=== PATIENT | male | born 1935 | race Asian ===

== ENCOUNTER 2016-10-23 10:53 | Emergency (ER) | payer OTHER ==
[2016-10-23 11:01] VITALS: BP 158/59
--- NOTE | 2016-10-23 12:18 | UC ---
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 noticed he could not find the end of his hearing aid and thinks it may be stuck in ear Severity Initially: Mild Severity Currently: Mild Aggravating Factors: Nothing Alleviating Factors: Nothing Associated Signs/Symptoms: Negative: Discharge, URI Symptoms - Allergies/Home Medications Allergies/Adverse Reactions: Allergies Allergy/AdvReac Type Severity Reaction Status Date / Time No Known Allergies Allergy Verified 10/23/16 11:01 PMH/Surg Hx/FS Hx/Imm Hx Previously Healthy: Yes - Surgical History Surgical History: None - Family History Known Family History: Positive: None - Social History Occupation: Retired Lives: With Family Alcohol Use: None Substance Use Type: None Smoking Status (MU): Never Smoked Tobacco Review of Systems Constitutional: Negative ENT: Ear Ache Respiratory: Negative Cardiovascular: Negative Neurological: Negative Psychological: Negative All Other Systems Reviewed And Are Negative: Yes Physical Exam Triage Information Reviewed: Yes Appearance: Well-Appearing, No Pain Distress, Well-Nourished Vital Signs: Initial Vital Signs Temp 98.8 F 10/23/16 10:56 Pulse 54 10/23/16 10:56 Resp 16 10/23/16 10:56 BP 158/59 10/23/16 10:56 Pulse Ox 99 10/23/16 10:56 Vital Signs Reviewed: Yes ENT: Positive: TM dull - no FB in canal, Left TM, somewhat retracted and injected Dental Exam: Normal Neck exam: Normal Neck: Positive: Supple, Nontender, No Lymphadenopathy Respiratory Exam: Normal Cardiovascular Exam: Normal Neurological Exam: Normal Psychological Exam: Normal Skin Exam: Normal Ear Complaint Course/Dx - Differential Dx/Diagnosis Differential Diagnosis/HQI/PQRI: Cerumen Impaction, Foreign Body, Otitis Externa , Otitis Media, URI Provider Diagnoses: otalgia Discharge - Discharge Plan Condition: Good Disposition: HOME Prescriptions: Neomyc/Polym/HC 1% OTIC SUSP* [Cortisporin Otic Susp 1%*] 4 drop LEFT EAR QID # 1 btl Patient Education Materials: Otitis Externa (ED) Additional Instructions: keep earc clean and dry do not use hearing aid for 5 days use ear drops as prescribed for 3 days return if problems worsen at any time
== END 2016-10-23 12:25 | disposition home or self-care (01) ==
LOC: UCEAST 10:53
DX: H92.02 Otalgia, left ear (principal)
CPT/HCPCS: 99211; G0463

== ENCOUNTER 2023-02-02 14:07 | Inpatient (IN) ==
[2023-02-02] MEDS ORDERED: NS 0.9% 1000 ml BAG 1,000 ML IV ONE (15:17)
[2023-02-02 16:28] LABS: ABS Eosinophils 0.1 10^3/uL (0.0-0.5); ABS Monocytes 0.3 10^3/uL (0.0-1.1); ABS Neutrophils 3.8 10^3/uL (1.5-7.6); ABS Nucleated RBC 0.01 10^3/ul; Eosinophil % 1.9 %; Hematocrit 26.6 % (38-53); Hemoglobin 9.3 g/dL (13.2-16.3); Lymphocyte % 18.5 %; Mean Corpuscular Hemoglobin 30.9 pg (27-33); Mean Corpuscular Volume 88.2 fL (80-97); Mean Platelet Volume 7.1 fL (7.5-11.2); Nucleated Red Blood Cells % 0.1 %/100WBC (0.0-0.8); Platelet Count 191 10^3/uL (150-450); Red Blood Count 3.01 10^6/uL (4.06-5.63); Red Cell Distribution Width 15.1 % (12-17); White Blood Count 5.2 10^3/uL (3.6-10.2)
[2023-02-02 16:40] LABS: INR 1.52 (0.83-1.13)
[2023-02-02 16:49] LABS: ALT 10 U/L (7-52); AST 14 U/L (13-39); Albumin 3.5 g/dL (3.2-5.2); Albumin/Globulin Ratio 1.2 (1-3); Alkaline Phosphatase 89 U/L (35-149); Anion Gap 4 mmol/L (2-16); Blood Urea Nitrogen 48 mg/dL (6-24); CO2 Carbon Dioxide 23 mmol/L (22-32); Calcium 8.3 mg/dL (8.6-10.3); Chloride 111 mmol/L (101-111); Creatine Kinase 132 U/L (10-223); Creatinine, Serum 1.77 mg/dL (0.67-1.17); Glucose 100 mg/dL (70-100); Magnesium 2.4 mg/dL (1.9-2.7); Potassium 4.8 mmol/L (3.5-5.0); Sodium 138 mmol/L (135-145); Total Bilirubin 0.5 mg/dL (0.2-1.0); Total Protein 6.5 g/dL (6.4-8.9); eGFR CKD-EPI 36.7 (>60)
[2023-02-02 16:52] LABS: High Sens Troponin Baseline 11 pg/mL (<20)
[2023-02-02 17:00] LABS: TSH Ultra Thyroid Stim Horm 9.63 mcIU/mL (0.34-5.60)
[2023-02-02 17:36] LABS: Urine Appearance Clear; Urine Bilirubin Negative (Negative); Urine Blood 1+ (Negative); Urine Color Yellow; Urine Glucose Negative (Negative); Urine Ketones Negative (Negative); Urine Nitrite Negative (Negative); Urine Protein 2+(100 mg/dL) (Negative); Urine Specific Gravity 1.014 (1.002-1.030); Urine Urobilinogen Negative (Negative)
[2023-02-02 17:53] LABS: High Sensitivity Troponin 1 Hr 11 pg/mL (<20)
[2023-02-02 18:12] LABS: Urine Bacteria Absent (Absent); Urine Red Blood Cell 2+(6-10/hpf) (Absent); Urine Squamous Epithelial Cell Present (Absent); Urine White Blood Cell Trace(0-5/hpf) (Absent)
[2023-02-02] MEDS ORDERED: Lactated Ringers 1000 ml BAG 1,000 ML IV SCH (21:00)
[2023-02-02 21:06] LABS: Venous Bicarbonate HCO3 21.5 mmol/L (24-28)
[2023-02-02 21:50] LABS: % Iron Saturation 12 % (15-55); .Transferrin 188 mg/dL (203-362); Iron 32 ug/dL (50-212); Total Iron Binding Capacity 263 mcg/dL (250-450); Unsaturated Iron Binding 231 ug/dL
[2023-02-02 22:13] LABS: Folate 11.65 ng/mL (5.90-24.80)
[2023-02-02 22:46] LABS: Cholesterol 126 mg/dL; HDL Cholesterol 36.4 mg/dL; LDL Cholesterol Direct 72 mg/dL
[2023-02-02 23:09] LABS: Vitamin B12 > 1450 pg/mL (180-914)
[2023-02-03] MEDS ORDERED: Gadoteridol (CONTRAST) 279.3 MG/ML 10 ML IV ONE (00:25)
[2023-02-03] MEDS: Enoxaparin 30 MG/0.3 ML SYR SUBCUT SCH ×2 (00:48→23:05)
[2023-02-03] MEDS: Ferric Gluconate IV 250 MG in NS 0.9% 250 ml 200 ML IVPB SCH ×2 (01:02→09:26)
[2023-02-03 06:32] LABS: Hematocrit 26.2 % (38-53); Hemoglobin 9.1 g/dL (13.2-16.3); Mean Corpuscular Hemoglobin 30.9 pg (27-33); Mean Corpuscular Hgb Conc 34.9 g/dL (31-36); Mean Corpuscular Volume 88.6 fL (80-97); Mean Platelet Volume 6.7 fL (7.5-11.2); Platelet Count 182 10^3/uL (150-450); Red Blood Count 2.95 10^6/uL (4.06-5.63); Red Cell Distribution Width 15.1 % (12-17); White Blood Count 4.3 10^3/uL (3.6-10.2)
[2023-02-03 06:39] LABS: INR 2.14 (0.83-1.13)
[2023-02-03 06:50] LABS: Calcium 8.1 mg/dL (8.6-10.3); Creatinine, Serum 1.14 mg/dL (0.67-1.17); Magnesium 2.3 mg/dL (1.9-2.7); Potassium 4.2 mmol/L (3.5-5.0); eGFR CKD-EPI 62.2 (>60)
[2023-02-03] MEDS ORDERED: Iohexol 300 (CONTRAST) 10 ML SDV IV ONE (09:14)
[2023-02-03] MEDS ORDERED: Senna/Docusate 8.6/50 mg (NF) TAB PO SCH (16:00)
[2023-02-03] MEDS: Docusate LIQ 100 MG/10 ML UDC PO SCH (17:10)
[2023-02-03] MEDS: Senna TAB 8.6 mg TAB PO SCH (17:10)
[2023-02-04] MEDS ORDERED: Influenza vaccine *QUAD* *2023-24* 0.5 ML SYRINGE IM ONE (09:00)
[2023-02-04] MEDS: Docusate LIQ 100 MG/10 ML UDC PO SCH ×2 (09:33→20:01)
[2023-02-04] MEDS: Senna TAB 8.6 mg TAB PO SCH ×2 (09:34→20:02)
[2023-02-04] MEDS: Ferric Gluconate IV 250 MG in NS 0.9% 250 ml 180 ML IVPB SCH (10:24)
[2023-02-04] MEDS: Enoxaparin 30 MG/0.3 ML SYR SUBCUT SCH (20:02)
[2023-02-04] MEDS ORDERED: Senna/Docusate 8.6/50 mg (NF) TAB PO SCH (21:00)
[2023-02-05 07:51] LABS: ABS Eosinophils 0.2 10^3/uL (0.0-0.5); ABS Lymphocytes 0.8 10^3/uL (1.0-4.8); ABS Monocytes 0.3 10^3/uL (0.0-1.1); ABS Neutrophils 2.8 10^3/uL (1.5-7.6); ABS Nucleated RBC 0.01 10^3/ul; Hematocrit 29.6 % (38-53); Hemoglobin 10.3 g/dL (13.2-16.3); Lymphocyte % 20.2 %; Mean Corpuscular Hemoglobin 30.8 pg (27-33); Nucleated Red Blood Cells % 0.2 %/100WBC (0.0-0.8); Platelet Count 204 10^3/uL (150-450); Red Blood Count 3.36 10^6/uL (4.06-5.63); Red Cell Distribution Width 15.2 % (12-17); White Blood Count 4.2 10^3/uL (3.6-10.2)
[2023-02-05 08:06] LABS: Calcium 8.7 mg/dL (8.6-10.3); Creatinine, Serum 0.97 mg/dL (0.67-1.17); Magnesium 2.1 mg/dL (1.9-2.7); Phosphorus 3.2 mg/dL (2.5-5.0); eGFR CKD-EPI 75.6 (>60)
[2023-02-05] MEDS: Docusate LIQ 100 MG/10 ML UDC PO SCH ×2 (10:45→21:13)
[2023-02-05] MEDS: Senna TAB 8.6 mg TAB PO SCH ×2 (10:45→21:13)
[2023-02-05] MEDS: Ferric Gluconate IV 250 MG in NS 0.9% 250 ml 180 ML IVPB SCH (10:46)
[2023-02-05] MEDS ORDERED: Magnesium Hydroxide LIQ 30 ML UDC PO PRN (11:37)
[2023-02-05] MEDS: Enoxaparin 30 MG/0.3 ML SYR SUBCUT SCH (21:10)
[2023-02-06 06:47] LABS: ABS Eosinophils 0.1 10^3/uL (0.0-0.5); ABS Lymphocytes 0.8 10^3/uL (1.0-4.8); ABS Monocytes 0.3 10^3/uL (0.0-1.1); ABS Neutrophils 2.4 10^3/uL (1.5-7.6); Eosinophil % 3.6 %; Hematocrit 25.9 % (38-53); Hemoglobin 9.2 g/dL (13.2-16.3); Lymphocyte % 23.4 %; Mean Corpuscular Hemoglobin 31.1 pg (27-33); Mean Corpuscular Hgb Conc 35.6 g/dL (31-36); Mean Corpuscular Volume 87.3 fL (80-97); Mean Platelet Volume 6.9 fL (7.5-11.2); Nucleated Red Blood Cells % 0.1 %/100WBC (0.0-0.8); Platelet Count 193 10^3/uL (150-450); Red Blood Count 2.97 10^6/uL (4.06-5.63); White Blood Count 3.6 10^3/uL (3.6-10.2)
[2023-02-06 07:01] LABS: Calcium 8.3 mg/dL (8.6-10.3); Creatinine, Serum 1.12 mg/dL (0.67-1.17); Magnesium 2.1 mg/dL (1.9-2.7); Potassium 3.7 mmol/L (3.5-5.0); eGFR CKD-EPI 63.6 (>60)
[2023-02-06] MEDS: Senna TAB 8.6 mg TAB PO SCH ×2 (10:56→21:37)
[2023-02-06] MEDS: Docusate LIQ 100 MG/10 ML UDC PO SCH ×2 (10:57→21:37)
[2023-02-06] MEDS ORDERED: NS 0.9% IVPB ONE (13:20)
[2023-02-06] MEDS ORDERED: FERRIC GLUCONATE IVPB ONE (13:20)
[2023-02-06] MEDS: Enoxaparin 30 MG/0.3 ML SYR SUBCUT SCH (21:34)
[2023-02-07 07:12] LABS: ABS Eosinophils 0.1 10^3/uL (0.0-0.5); ABS Lymphocytes 0.9 10^3/uL (1.0-4.8); ABS Monocytes 0.2 10^3/uL (0.0-1.1); ABS Neutrophils 2.1 10^3/uL (1.5-7.6); Eosinophil % 3.6 %; Hematocrit 27.7 % (38-53); Hemoglobin 9.8 g/dL (13.2-16.3); Lymphocyte % 25.6 %; Mean Corpuscular Hemoglobin 31.1 pg (27-33); Mean Corpuscular Hgb Conc 35.5 g/dL (31-36); Mean Corpuscular Volume 87.6 fL (80-97); Mean Platelet Volume 6.9 fL (7.5-11.2); Platelet Count 203 10^3/uL (150-450); Red Blood Count 3.16 10^6/uL (4.06-5.63); Red Cell Distribution Width 14.9 % (12-17); White Blood Count 3.3 10^3/uL (3.6-10.2)
[2023-02-07 07:28] LABS: Calcium 8.6 mg/dL (8.6-10.3); Creatinine, Serum 1.14 mg/dL (0.67-1.17); Magnesium 2.2 mg/dL (1.9-2.7); Phosphorus 2.8 mg/dL (2.5-5.0); Potassium 3.9 mmol/L (3.5-5.0); eGFR CKD-EPI 62.2 (>60)
[2023-02-07] MEDS: Senna TAB 8.6 mg TAB PO SCH ×2 (08:54→19:57)
[2023-02-07] MEDS: Docusate LIQ 100 MG/10 ML UDC PO SCH ×2 (08:56→19:57)
[2023-02-07] MEDS: Enoxaparin 30 MG/0.3 ML SYR SUBCUT SCH (19:57)
[2023-02-08 06:16] LABS: ABS Eosinophils 0.2 10^3/uL (0.0-0.5); ABS Lymphocytes 0.8 10^3/uL (1.0-4.8); ABS Monocytes 0.3 10^3/uL (0.0-1.1); ABS Neutrophils 2.2 10^3/uL (1.5-7.6); Eosinophil % 4.4 %; Hematocrit 26.9 % (38-53); Hemoglobin 9.5 g/dL (13.2-16.3); Lymphocyte % 23.5 %; Mean Corpuscular Hemoglobin 31.3 pg (27-33); Mean Corpuscular Hgb Conc 35.2 g/dL (31-36); Mean Corpuscular Volume 89.1 fL (80-97); Mean Platelet Volume 6.9 fL (7.5-11.2); Nucleated Red Blood Cells % 0.1 %/100WBC (0.0-0.8); Platelet Count 187 10^3/uL (150-450); Red Blood Count 3.02 10^6/uL (4.06-5.63); Red Cell Distribution Width 14.7 % (12-17); White Blood Count 3.5 10^3/uL (3.6-10.2)
[2023-02-08 06:34] LABS: Calcium 8.5 mg/dL (8.6-10.3); Creatinine, Serum 1.13 mg/dL (0.67-1.17); Magnesium 2.1 mg/dL (1.9-2.7); eGFR CKD-EPI 62.9 (>60)
[2023-02-08] MEDS: Docusate LIQ 100 MG/10 ML UDC PO SCH ×2 (11:39→22:03)
[2023-02-08] MEDS: Senna TAB 8.6 mg TAB PO SCH ×2 (11:39→22:03)
[2023-02-08] MEDS: Enoxaparin 30 MG/0.3 ML SYR SUBCUT SCH (22:03)
[2023-02-09 05:52] LABS: ABS Eosinophils 0.2 10^3/uL (0.0-0.5); ABS Lymphocytes 1.1 10^3/uL (1.0-4.8); ABS Monocytes 0.7 10^3/uL (0.0-1.1); ABS Neutrophils 2.6 10^3/uL (1.5-7.6); Eosinophil % 4.6 %; Hematocrit 27.7 % (38-53); Hemoglobin 9.8 g/dL (13.2-16.3); Lymphocyte % 23.3 %; Mean Corpuscular Hgb Conc 35.4 g/dL (31-36); Mean Corpuscular Volume 87.4 fL (80-97); Nucleated Red Blood Cells % 0.1 %/100WBC (0.0-0.8); Platelet Count 209 10^3/uL (150-450); Red Blood Count 3.17 10^6/uL (4.06-5.63); Red Cell Distribution Width 15.3 % (12-17); White Blood Count 4.6 10^3/uL (3.6-10.2)
[2023-02-09 06:14] LABS: Calcium 8.6 mg/dL (8.6-10.3); Creatinine, Serum 1.08 mg/dL (0.67-1.17); Magnesium 2.2 mg/dL (1.9-2.7); Potassium 3.9 mmol/L (3.5-5.0); eGFR CKD-EPI 66.4 (>60)
[2023-02-09] MEDS ORDERED: Potassium Chloride LIQUID 20 MEQ/15 ML LIQUID PO ONE (07:59)
[2023-02-09] MEDS: Senna TAB 8.6 mg TAB PO SCH ×2 (09:21→22:39)
[2023-02-09] MEDS: Docusate LIQ 100 MG/10 ML UDC PO SCH ×2 (09:33→22:39)
[2023-02-09] MEDS: Enoxaparin 30 MG/0.3 ML SYR SUBCUT SCH (22:39)
[2023-02-10 08:22] VITALS: BP 145/60
[2023-02-10] MEDS: Senna TAB 8.6 mg TAB PO SCH (08:49)
[2023-02-10] MEDS: Docusate LIQ 100 MG/10 ML UDC PO SCH (08:51)
[2023-02-10 11:54] LABS: Rapid COVID-19 Molecular Undetected (Undetected)
== END 2023-02-10 12:29 | DRG 312 ==
LOC: ED 14:07 → EDHOLD 14:07 → SUATTDRO 19:33 → MEDTELE 02-03 10:10 → SUATTDRO 02-04 12:00
PROVIDERS: ADMIT Student in an Organized Health Care Education/Training Program; ATTEND Internal Medicine

== ENCOUNTER 2023-03-30 14:37 | Inpatient (IN) ==
[2023-03-30 17:39] LABS: ABS Eosinophils 0.2 10^3/uL (0.0-0.5); ABS Monocytes 0.6 10^3/uL (0.0-1.1); ABS Neutrophils 4.4 10^3/uL (1.5-7.6); Eosinophil % 3.1 %; Hematocrit 29.1 % (38-53); Hemoglobin 10.1 g/dL (13.2-16.3); Mean Corpuscular Hemoglobin 31.6 pg (27-33); Mean Corpuscular Hgb Conc 34.8 g/dL (31-36); Mean Corpuscular Volume 90.8 fL (80-97); Platelet Count 193 10^3/uL (150-450); Red Cell Distribution Width 14.7 % (12-17); White Blood Count 6.2 10^3/uL (3.6-10.2)
[2023-03-30 17:52] LABS: INR 1.39 (0.83-1.13)
[2023-03-30 17:57] LABS: Albumin 3.5 g/dL (3.2-5.2); Albumin/Globulin Ratio 1.2 (1-3); Calcium 8.4 mg/dL (8.6-10.3); Creatinine, Serum 1.08 mg/dL (0.67-1.17); Potassium 3.8 mmol/L (3.5-5.0); Total Bilirubin 0.6 mg/dL (0.2-1.0); Total Protein 6.5 g/dL (6.4-8.9); eGFR CKD-EPI 66.4 (>60)
[2023-03-30] MEDS ORDERED: Morphine 2 MG/ML SYRINGE IV PRN (18:41)
[2023-03-30] MEDS ORDERED: Acetaminophen IV 1 GM/100ML 1,000 MG/100 ML BAG IV SCH (18:45)
[2023-03-30] MEDS ORDERED: Labetalol IV 5 MG/ML 20 ml VIAL IV PUSH ONE (18:55)
[2023-03-30] MEDS: niCARdipine 0.1MG/ML IVPREMIX 20 MG/200 ML BAG IV SCH (20:03)
[2023-03-30 21:15] LABS: TSH Ultra Thyroid Stim Horm 5.87 mcIU/mL (0.34-5.60)
[2023-03-31] MEDS: niCARdipine 0.1MG/ML IVPREMIX 20 MG/200 ML BAG IV SCH ×2 (00:05→04:01)
[2023-03-31 04:58] LABS: ABS Eosinophils 0.2 10^3/uL (0.0-0.5); ABS Monocytes 0.4 10^3/uL (0.0-1.1); ABS Neutrophils 3.3 10^3/uL (1.5-7.6); ABS Nucleated RBC 0.01 10^3/ul; Eosinophil % 3.3 %; Hematocrit 26.5 % (38-53); Hemoglobin 9.2 g/dL (13.2-16.3); Lymphocyte % 20.8 %; Mean Corpuscular Hemoglobin 31.6 pg (27-33); Mean Corpuscular Hgb Conc 34.6 g/dL (31-36); Mean Corpuscular Volume 91.4 fL (80-97); Mean Platelet Volume 7.2 fL (7.5-11.2); Nucleated Red Blood Cells % 0.1 %/100WBC (0.0-0.8); Platelet Count 177 10^3/uL (150-450); Red Blood Count 2.91 10^6/uL (4.06-5.63); Red Cell Distribution Width 14.4 % (12-17); White Blood Count 4.9 10^3/uL (3.6-10.2)
[2023-03-31 05:15] LABS: Creatinine, Serum 0.94 mg/dL (0.67-1.17); Potassium 3.7 mmol/L (3.5-5.0); eGFR CKD-EPI 78.5 (>60)
[2023-04-01] MEDS ORDERED: Magnesium Hydroxide LIQ 30 ML UDC PO ONE (09:29)
[2023-04-01 09:47] VITALS: BP 144/55
== END 2023-04-01 11:05 | DRG 86 ==
LOC: ED 14:37 → EDHOLD 17:26 → SUATTDRO 17:26 → ICU 17:51 → MEDTELE 18:45
PROVIDERS: ADMIT Internal Medicine Critical Care Medicine; ATTEND Hospitalist

== ENCOUNTER 2023-06-24 14:31 | Observation (INO) ==
[2023-06-24 16:02] LABS: ABS Eosinophils 0.2 10^3/uL (0.0-0.5); ABS Monocytes 0.6 10^3/uL (0.0-1.1); ABS Neutrophils 4.7 10^3/uL (1.5-7.6); Eosinophil % 3.2 %; Hematocrit 30.5 % (38-53); Hemoglobin 10.7 g/dL (13.2-16.3); Lymphocyte % 15.8 %; Mean Corpuscular Hgb Conc 35.2 g/dL (31-36); Mean Corpuscular Volume 90.9 fL (80-97); Platelet Count 167 10^3/uL (150-450); Red Blood Count 3.36 10^6/uL (4.06-5.63); Red Cell Distribution Width 13.8 % (12-17); White Blood Count 6.5 10^3/uL (3.6-10.2)
[2023-06-24 16:22] LABS: Urine Appearance Clear; Urine Bilirubin Negative (Negative); Urine Blood 1+ (Negative); Urine Color Light-Yellow; Urine Glucose Negative (Negative); Urine Ketones Negative (Negative); Urine Nitrite Negative (Negative); Urine Protein 2+ (>=100 mg/dL) (Negative); Urine Specific Gravity 1.011 (1.002-1.030); Urine Urobilinogen Negative (Negative)
[2023-06-24 16:29] LABS: Activated Partial Thrombo Time 32.4 seconds (26.0-38.0); INR 1.07 (0.83-1.13)
[2023-06-24 16:43] LABS: Urine Bacteria Absent /HPF (Absent); Urine Red Blood Cell 1+(3-5/hpf) /HPF (0-Trace); Urine White Blood Cell Trace(0-5/hpf) /HPF (0-Trace)
[2023-06-24 17:07] LABS: TSH Ultra Thyroid Stim Horm 30.96 mcIU/mL (0.34-5.60)
[2023-06-24 17:19] LABS: High Sensitivity Troponin 1 Hr 29 pg/mL (<20)
[2023-06-24 17:23] LABS: Albumin 3.5 g/dL (3.2-5.2); Albumin/Globulin Ratio 1.3 (1-3); Calcium 8.3 mg/dL (8.6-10.3); Creatinine, Serum 1.23 mg/dL (0.67-1.17); Globulin 2.7 g/dL (2-4); Magnesium 2.3 mg/dL (1.9-2.7); Potassium 4.3 mmol/L (3.5-5.0); Total Bilirubin 0.9 mg/dL (0.2-1.0); Total Protein 6.2 g/dL (6.4-8.9); eGFR CKD-EPI 56.8 (>60)
[2023-06-24 17:55] LABS: Free T4 0.95 ng/dL (0.61-1.12)
[2023-06-25] MEDS: Enoxaparin 40 MG/0.4 ML SYR SUBCUT SCH (00:29)
[2023-06-25 06:28] LABS: Hematocrit 29.8 % (38-53); Hemoglobin 10.6 g/dL (13.2-16.3); Mean Corpuscular Hemoglobin 32.3 pg (27-33); Mean Corpuscular Hgb Conc 35.6 g/dL (31-36); Mean Corpuscular Volume 90.8 fL (80-97); Mean Platelet Volume 7.2 fL (7.5-11.2); Platelet Count 156 10^3/uL (150-450); Red Blood Count 3.28 10^6/uL (4.06-5.63); Red Cell Distribution Width 13.5 % (12-17); White Blood Count 4.8 10^3/uL (3.6-10.2)
[2023-06-25 06:47] LABS: Calcium 8.1 mg/dL (8.6-10.3); Creatinine, Serum 1.02 mg/dL (0.67-1.17); Magnesium 2.3 mg/dL (1.9-2.7); Potassium 3.8 mmol/L (3.5-5.0); eGFR CKD-EPI 71.1 (>60)
[2023-06-25] MEDS: DOXAZOSIN 4 MG PO SCH (08:27)
[2023-06-25] MEDS: Lactated Ringers 1000 ml BAG 1,000 ML IV SCH (15:58)
[2023-06-25 23:14] LABS: Urine Appearance Clear; Urine Bilirubin Negative (Negative); Urine Blood 1+ (Negative); Urine Color Light-Yellow; Urine Glucose Trace (Negative); Urine Ketones Negative (Negative); Urine Nitrite Negative (Negative); Urine Protein 1+ (>=30 mg/dL) (Negative); Urine Specific Gravity 1.014 (1.002-1.030); Urine Urobilinogen Negative (Negative); Urine pH 6.5 (5.0-8.0)
[2023-06-25 23:23] LABS: Urine Bacteria Absent /HPF (Absent); Urine Red Blood Cell 1+(3-5/hpf) /HPF (0-Trace); Urine White Blood Cell Trace(0-5/hpf) /HPF (0-Trace)
[2023-06-26 10:10] LABS: Hematocrit 31.1 % (38-53); Hemoglobin 11.1 g/dL (13.2-16.3); Mean Corpuscular Hemoglobin 32.2 pg (27-33); Mean Corpuscular Hgb Conc 35.6 g/dL (31-36); Mean Corpuscular Volume 90.5 fL (80-97); Mean Platelet Volume 6.9 fL (7.5-11.2); Platelet Count 170 10^3/uL (150-450); Red Blood Count 3.43 10^6/uL (4.06-5.63); Red Cell Distribution Width 13.7 % (12-17); White Blood Count 4.4 10^3/uL (3.6-10.2)
[2023-06-26 10:46] LABS: Calcium 8.4 mg/dL (8.6-10.3); Creatinine, Serum 1.2 mg/dL (0.67-1.17); Potassium 3.9 mmol/L (3.5-5.0); eGFR CKD-EPI 58.5 (>60)
[2023-06-26] MEDS: Senna TAB 8.6 mg TAB PO ONE (15:17)
[2023-06-26] MEDS: Magnesium Hydroxide LIQ 30 ML UDC PO PRN (15:18)
[2023-06-26 18:46] LABS: Rapid COVID-19 Molecular Undetected (Undetected)
[2023-06-26] MEDS: Polyethylene Glycol 3350 17 GM PACKET PO SCH (20:52)
[2023-06-26] MEDS: hydrALAZINE 20 mg/ml 1 ML Vial IV IV SLOW PU ONE (23:07)
[2023-06-27 05:26] LABS: Hematocrit 29.3 % (38-53); Hemoglobin 10.5 g/dL (13.2-16.3); Mean Corpuscular Hemoglobin 32.3 pg (27-33); Mean Corpuscular Hgb Conc 35.8 g/dL (31-36); Mean Corpuscular Volume 90.4 fL (80-97); Mean Platelet Volume 7.1 fL (7.5-11.2); Platelet Count 169 10^3/uL (150-450); Red Blood Count 3.24 10^6/uL (4.06-5.63); Red Cell Distribution Width 13.3 % (12-17); White Blood Count 4.8 10^3/uL (3.6-10.2)
[2023-06-27 05:41] LABS: Creatinine, Serum 1.2 mg/dL (0.67-1.17); Magnesium 2.4 mg/dL (1.9-2.7); Potassium 3.9 mmol/L (3.5-5.0); eGFR CKD-EPI 58.5 (>60)
[2023-06-27] MEDS: Lactulose 30 ml UDC PO ONE (13:29)
[2023-06-27 13:43] VITALS: BP 109/56
[2023-06-27 14:05] LABS: TSH Ultra Thyroid Stim Horm 29.37 mcIU/mL (0.34-5.60)
== END 2023-06-27 14:33 ==
LOC: EDHOLD 14:31 → ED 14:31 → SUATTDRO 22:28 → MEDTELE 06-25 02:56
PROVIDERS: ADMIT Internal Medicine; ATTEND Internal Medicine

== ENCOUNTER 2023-08-09 01:34 | Inpatient (IN) ==
[2023-08-09] MEDS: LACTATED RINGERS SEPSIS IV ONE (01:53)
[2023-08-09] MEDS: Piperacillin/Tazobac 3.375 BAG 3.375 GM/100 ML BAG IV ONE (01:55)
[2023-08-09] MEDS: NS 0.9% 1000 ml BAG 1,000 ML IV.FLUID IV ONE (01:55)
[2023-08-09 01:59] LABS: ABS Lymphocytes 0.2 10^3/uL (1.0-4.8); ABS Neutrophils 1.7 10^3/uL (1.5-7.6); Eosinophil % 0.1 %; Hematocrit 34.1 % (38-53); Hemoglobin 11.8 g/dL (13.2-16.3); Mean Corpuscular Hemoglobin 31.9 pg (27-33); Mean Corpuscular Hgb Conc 34.8 g/dL (31-36); Mean Corpuscular Volume 91.7 fL (80-97); Mean Platelet Volume 6.3 fL (7.5-11.2); Nucleated Red Blood Cells % 0.2 %/100WBC (0.0-0.8); Platelet Count 204 10^3/uL (150-450); Red Blood Count 3.72 10^6/uL (4.06-5.63); Red Cell Distribution Width 13.5 % (12-17); White Blood Count 1.9 10^3/uL (3.6-10.2)
[2023-08-09 02:11] LABS: Activated Partial Thrombo Time 27.7 seconds (26.0-38.0); INR 1.07 (0.83-1.13)
[2023-08-09 02:55] LABS: Albumin 3.4 g/dL (3.2-5.2); Albumin/Globulin Ratio 1.3 (1-3); C Reactive Protein 1.84 mg/L (<8.01); Calcium 8.2 mg/dL (8.6-10.3); Creatinine, Serum 1.78 mg/dL (0.67-1.17); Globulin 2.6 g/dL (2-4); Potassium 3.3 mmol/L (3.5-5.0); Total Bilirubin 1.2 mg/dL (0.2-1.0); eGFR CKD-EPI 36.5 (>60)
[2023-08-09 03:06] LABS: Venous Bicarbonate HCO3 23.5 mmol/L (24-28)
[2023-08-09 03:32] LABS: High Sensitivity Troponin 1 Hr 27 pg/mL (<20)
[2023-08-09] MEDS: Iodixanol (CONTRAST) 320 MG/ML 100 ML SDV IV ONE (03:47)
[2023-08-09] MEDS: Vancomycin 1,000 MG in NS 0.9% 250 ml 250 ML IVPB SCH (04:25)
[2023-08-09 07:55] LABS: Magnesium 2.5 mg/dL (1.9-2.7)
[2023-08-09 08:15] LABS: Urine Appearance Clear; Urine Bilirubin Negative (Negative); Urine Blood 1+ (Negative); Urine Color Light-Yellow; Urine Glucose Negative (Negative); Urine Ketones Negative (Negative); Urine Nitrite Negative (Negative); Urine Protein Trace (Negative); Urine Specific Gravity 1.029 (1.002-1.030); Urine Urobilinogen Negative (Negative)
[2023-08-09] MEDS: cefTRIAXone 1 gm/50 mL D5W 1 GM/50 ML BAG IV SCH (08:34)
[2023-08-09] MEDS: Azithromycin 500 mg/250 ml NS 500 MG/250 ML BAG IVPB SCH (08:40)
[2023-08-09] MEDS: Enoxaparin 40 MG/0.4 ML SYR SUBCUT SCH (08:42)
[2023-08-09 08:55] LABS: Urine Bacteria Absent /HPF (Absent); Urine Red Blood Cell Trace(0-2/hpf) /HPF (0-Trace); Urine Squamous Epithelial Cell Present /HPF (Absent); Urine White Blood Cell Trace(0-5/hpf) /HPF (0-Trace)
[2023-08-09 13:06] LABS: High Sensitivity Troponin 3 Hr 63 pg/mL (<20)
[2023-08-09 13:33] LABS: Hematocrit 27.1 % (38-53); Hemoglobin 9.7 g/dL (13.2-16.3); Mean Corpuscular Hemoglobin 32.6 pg (27-33); Mean Corpuscular Hgb Conc 35.9 g/dL (31-36); Mean Corpuscular Volume 90.8 fL (80-97); Platelet Count 166 10^3/uL (150-450); Red Blood Count 2.99 10^6/uL (4.06-5.63); Red Cell Distribution Width 13.4 % (12-17); White Blood Count 6.6 10^3/uL (3.6-10.2)
[2023-08-09 14:28] LABS: ABS Lymphocytes 0.6 10^3/uL (1.0-4.8); ABS Monocytes 0.2 10^3/uL (0.0-1.1); ABS Neutrophils 5.7 10^3/uL (1.5-7.6); ABS Nucleated RBC 0.01 10^3/ul; Lymphocyte % 9.4 %; Nucleated Red Blood Cells % 0.2 %/100WBC (0.0-0.8)
[2023-08-09] MEDS: Lactated Ringers 1000 ml BAG 1,000 ML IV SCH (15:15)
[2023-08-09] MEDS ORDERED: cefTRIAXone 1 gm/50 mL D5W 1 GM/50 ML BAG IV SCH (16:15)
[2023-08-09 18:40] LABS: High Sensitivity Troponin 3 Hr 79 pg/mL (<20)
[2023-08-09 20:03] LABS: Hematocrit 26.6 % (38-53); Hemoglobin 9.4 g/dL (13.2-16.3)
[2023-08-10 05:11] LABS: ABS Lymphocytes 0.7 10^3/uL (1.0-4.8); ABS Monocytes 0.3 10^3/uL (0.0-1.1); ABS Neutrophils 8.9 10^3/uL (1.5-7.6); Eosinophil % 0.4 %; Hematocrit 25.4 % (38-53); Lymphocyte % 6.7 %; Mean Corpuscular Hemoglobin 32.3 pg (27-33); Mean Corpuscular Hgb Conc 35.4 g/dL (31-36); Mean Corpuscular Volume 91.2 fL (80-97); Mean Platelet Volume 6.9 fL (7.5-11.2); Platelet Count 137 10^3/uL (150-450); Red Blood Count 2.79 10^6/uL (4.06-5.63); Red Cell Distribution Width 13.7 % (12-17); White Blood Count 9.9 10^3/uL (3.6-10.2)
[2023-08-10 05:26] LABS: Albumin 2.6 g/dL (3.2-5.2); Albumin/Globulin Ratio 1.2 (1-3); Calcium 7.3 mg/dL (8.6-10.3); Creatinine, Serum 1.54 mg/dL (0.67-1.17); Globulin 2.1 g/dL (2-4); Magnesium 2.4 mg/dL (1.9-2.7); Potassium 3.4 mmol/L (3.5-5.0); Total Bilirubin 1.2 mg/dL (0.2-1.0); Total Protein 4.7 g/dL (6.4-8.9); eGFR CKD-EPI 43.4 (>60)
[2023-08-10] MEDS: Azithromycin 500 mg/250 ml NS 500 MG/250 ML BAG IVPB SCH (09:07)
[2023-08-10] MEDS: cefTRIAXone 1 gm/50 mL D5W 1 GM/50 ML BAG IV SCH (09:07)
[2023-08-10] MEDS: Enoxaparin 30 MG/0.3 ML SYR SUBCUT SCH (09:07)
[2023-08-10 22:45] LABS: ABS Lymphocytes 0.6 10^3/uL (1.0-4.8); ABS Monocytes 0.2 10^3/uL (0.0-1.1); ABS Neutrophils 10.3 10^3/uL (1.5-7.6); Eosinophil % 0.4 %; Hematocrit 24.4 % (38-53); Hemoglobin 8.4 g/dL (13.2-16.3); Lymphocyte % 5.7 %; Mean Corpuscular Hemoglobin 31.5 pg (27-33); Mean Corpuscular Hgb Conc 34.6 g/dL (31-36); Mean Corpuscular Volume 91.1 fL (80-97); Mean Platelet Volume 6.8 fL (7.5-11.2); Platelet Count 142 10^3/uL (150-450); Red Blood Count 2.68 10^6/uL (4.06-5.63); Red Cell Distribution Width 13.7 % (12-17); White Blood Count 11.1 10^3/uL (3.6-10.2)
[2023-08-11 05:46] LABS: ABS Lymphocytes 0.6 10^3/uL (1.0-4.8); ABS Monocytes 0.2 10^3/uL (0.0-1.1); ABS Neutrophils 10.1 10^3/uL (1.5-7.6); Eosinophil % 0.4 %; Hematocrit 26.2 % (38-53); Hemoglobin 9.2 g/dL (13.2-16.3); Lymphocyte % 5.5 %; Mean Corpuscular Hemoglobin 31.9 pg (27-33); Mean Corpuscular Hgb Conc 35.1 g/dL (31-36); Mean Corpuscular Volume 91.1 fL (80-97); Mean Platelet Volume 7.1 fL (7.5-11.2); Platelet Count 142 10^3/uL (150-450); Red Blood Count 2.88 10^6/uL (4.06-5.63); Red Cell Distribution Width 13.3 % (12-17); White Blood Count 10.9 10^3/uL (3.6-10.2)
[2023-08-11 05:59] LABS: Albumin 2.7 g/dL (3.2-5.2); Albumin/Globulin Ratio 1.3 (1-3); Calcium 7.3 mg/dL (8.6-10.3); Creatinine, Serum 1.2 mg/dL (0.67-1.17); Globulin 2.1 g/dL (2-4); Magnesium 2.3 mg/dL (1.9-2.7); Potassium 3.2 mmol/L (3.5-5.0); Total Bilirubin 1.2 mg/dL (0.2-1.0); Total Protein 4.8 g/dL (6.4-8.9); eGFR CKD-EPI 58.5 (>60)
[2023-08-11] MEDS: Heparin 5000 UNITS/ML 1 mL VIAL SUBCUT SCH (08:49)
[2023-08-11] MEDS: KCL 20 MEQ/100 ML IVPREMIX 20 MEQ/100 ML BAG IV SCH (11:09)
[2023-08-12 06:17] LABS: ABS Eosinophils 0.1 10^3/uL (0.0-0.5); ABS Lymphocytes 0.7 10^3/uL (1.0-4.8); ABS Monocytes 0.3 10^3/uL (0.0-1.1); ABS Neutrophils 8.1 10^3/uL (1.5-7.6); Eosinophil % 0.8 %; Hematocrit 25.8 % (38-53); Hemoglobin 9.3 g/dL (13.2-16.3); Lymphocyte % 7.4 %; Mean Corpuscular Hemoglobin 32.7 pg (27-33); Mean Corpuscular Volume 90.8 fL (80-97); Platelet Count 144 10^3/uL (150-450); Red Blood Count 2.84 10^6/uL (4.06-5.63); Red Cell Distribution Width 13.1 % (12-17); White Blood Count 9.2 10^3/uL (3.6-10.2)
[2023-08-12 06:47] LABS: Calcium 7.2 mg/dL (8.6-10.3); Creatinine, Serum 1.17 mg/dL (0.67-1.17); Potassium 3.8 mmol/L (3.5-5.0); eGFR CKD-EPI 60.3 (>60)
[2023-08-14] MEDS: Polyethylene Glycol 3350 17 GM PACKET PO PRN (16:31)
[2023-08-14] MEDS: Senna TAB 8.6 mg TAB PO PRN (16:31)
[2023-08-14] MEDS ORDERED: Magnesium Hydroxide LIQ 30 ML UDC PO PRN (20:11)
[2023-08-14] MEDS: Magnesium Hydroxide LIQ 30 ML UDC PO SCH (21:23)
[2023-08-15 10:51] VITALS: BP 162/66
[2023-08-15 14:27] LABS: Rapid COVID-19 Molecular Undetected (Undetected)
== END 2023-08-15 13:25 | DRG 871 ==
LOC: ED 01:34 → EDHOLD 01:34 → SUATTDRO 10:29 → MED 13:50 → EDHOLD 14:22 → MEDTELE 16:04 → SUATTDRO 08-10 13:40
PROVIDERS: ADMIT Internal Medicine; ATTEND Internal Medicine